=== PATIENT | female | born 1950 | race African-American/Black ===

== ENCOUNTER 2016-07-18 21:14 | Emergency (ER) | payer OTHER, BC ==
[~2016-07-18] VITALS: Ht 165.1 cm; Wt 92.5 kg
[~2016-07-18 21:14] MED LIST: FLEXERIL10 MG PO; UNABLE TO OBTAIN
[2016-07-19 00:05] VITALS: BP 144/96
== END 2016-07-19 00:10 | disposition home or self-care (01) ==
LOC: EXP 21:14 → EME 21:14 → EXP 07-19 00:10
DX: R15.9 Full incontinence of feces (principal)
CPT/HCPCS: 99281; 99284

== ENCOUNTER 2016-12-01 13:38 | Observation (INO) | payer OTHER, BC ==
[~2016-12-01] VITALS: Ht 165.1 cm; Wt 89.2 kg
[2016-12-01 14:03] LABS: HEMATOCRIT 40.8 % (36.0-46.0); MCH 29.3 PG (29.0-34.0); MCHC 32.6 G/DL (30.0-36.0); MCV 89.9 FL (83-99); MEAN PLAT.VOLUME 10.3 uM^3 (9.5-12.4); PLATELET COUNT 291 K/uL (156-360); RBC DIS.WIDTH-CV 13.6 % (11.8-14.6); RED BLOOD COUNT 4.54 M/uL (3.80-5.20); WHITE BLOOD COUNT 6.4 K/uL (4.1-10.2)
[2016-12-01 14:12] LABS: CHLORIDE 106 mEq/L (99-109); POTASSIUM 4.4 mEq/L (3.7-5.4); SODIUM 145 mEq/L (136-147)
[2016-12-01 14:14] LABS: GLUCOSE 114 mg/dL (70-99)
[2016-12-01 14:15] LABS: ANION GAP 10 MEQ/L (2-14)
[2016-12-01 14:17] LABS: GFR ESTIMATE (CALCULATED) > 59 mL/min/
[2016-12-01 14:18] LABS: UREA NITROGEN (BUN) 14 mg/dL (9-23)
[2016-12-01 14:23] LABS: TROP-I INTERPRETATION NEGATIVE; TROPONIN-I < 0.01 ng/mL (0.0-0.30)
[2016-12-01 17:28] VITALS: BP 178/77
[2016-12-01 19:00] VITALS: BP 132/70
[2016-12-01 20:27] LABS: TROP-I INTERPRETATION NEGATIVE; TROPONIN-I < 0.01 ng/mL (0.0-0.30)
[2016-12-01 20:37] LABS: POINT-OF-CARE METER ID UU14162513
[2016-12-01] MEDS ORDERED: METFORMIN HCL1000 MG PO (20:54)
[2016-12-01] MEDS ORDERED: TRIFLUOPERAZINE5 MG PO (20:54)
[2016-12-01] MEDS ORDERED: MELOXICAM7.5 MG PO (20:55)
[2016-12-01] MEDS ORDERED: AMLODIPINE-ATO1 EAC4 PO (20:56)
[2016-12-01] MEDS ORDERED: DIAZEPAM5 MG PO (20:57)
[2016-12-01] MEDS ORDERED: CYCLOBENZAPRINE10 MG PO (20:57)
[2016-12-01] MEDS ORDERED: MEMANTINE HCL5 MG PO (20:58)
[2016-12-01] MEDS ORDERED: ESCITALOPRAM OX10 MG PO (20:58)
[2016-12-01] MEDS ORDERED: PROTONIX40 MG PO (20:59)
[2016-12-01] MEDS ORDERED: TRAMADOL HCL50 MG PO (21:01)
[2016-12-01] MEDS ORDERED: LO-DOSE ASPIRIN81 M2 PO (21:01)
[2016-12-01 22:28] LABS: TROP-I INTERPRETATION NEGATIVE; TROPONIN-I 0.02 ng/mL (0.0-0.30)
[2016-12-02 00:26] VITALS: BP 109/63
[2016-12-02 04:27] VITALS: BP 158/73
[2016-12-02 07:21] LABS: TROP-I INTERPRETATION NEGATIVE; TROPONIN-I < 0.01 ng/mL (0.0-0.30)
[2016-12-02 07:26] VITALS: BP 136/72
[2016-12-02 08:16] LABS: POINT-OF-CARE METER ID UU14162513
[2016-12-02 10:34] VITALS: BP 125/83
[2016-12-02 12:26] LABS: POINT-OF-CARE METER ID UU14162513
[2016-12-02 15:21] LABS: TROP-I INTERPRETATION NEGATIVE; TROPONIN-I < 0.01 ng/mL (0.0-0.30)
[2016-12-02 15:50] VITALS: BP 136/73
[2016-12-02 17:34] LABS: POINT-OF-CARE METER ID UU13113831
[2016-12-02 19:05] VITALS: BP 147/79
[2016-12-02] MEDS ORDERED: AMLODIPINE BESY10 MG PO (20:26)
[2016-12-02] MEDS ORDERED: LOPRESSOR25 MG PO (20:26)
[2016-12-02] MEDS ORDERED: HYDROCODON-ACE1 EAC7 PO (20:26)
== END 2016-12-02 21:58 | disposition home or self-care (01) ==
LOC: EME 13:38 → EDOF 15:49 → 5WEST 15:49 → EDOF 15:49 → 5WEST 17:09
PROVIDERS: Internal Medicine
DX: R07.9 Chest pain, unspecified (principal); E11.9 Type 2 diabetes mellitus without complications; I10 Essential (primary) hypertension; E78.5 Hyperlipidemia, unspecified; Z87.891 Personal history of nicotine dependence; Z88.2 Allergy status to sulfonamides; Z91.041 Radiographic dye allergy status
CPT/HCPCS: 71020; 80048; 82948; 84484; 85027; 93005; 99281; 99285; G0378; J1644; J2405

== ENCOUNTER 2017-01-24 10:08 | Emergency (ER) | payer OTHER, BC ==
[~2017-01-24] VITALS: Ht 165.1 cm; Wt 90.0 kg
[~2017-01-24 10:08] MED LIST changes: +AMLODIPINE BESY10 MG PO; +AMLODIPINE-ATO1 EAC4 PO; +CYCLOBENZAPRINE10 MG PO; +DIAZEPAM5 MG PO; +ESCITALOPRAM OX10 MG PO; +HYDROCODON-ACE1 EAC7 PO; +LO-DOSE ASPIRIN81 M2 PO; +LOPRESSOR25 MG PO; +MELOXICAM7.5 MG PO; +MEMANTINE HCL5 MG PO; +METFORMIN HCL1000 MG PO; +PROTONIX40 MG PO; +TRAMADOL HCL50 MG PO; +TRIFLUOPERAZINE5 MG PO
[2017-01-24 11:23] LABS: ADD MIUA? YES; BILIRUBIN NEGATIVE; BLOOD LARGE; COLOR AMBER ((YELLOW)); GLUCOSE (STRIP) NEGATIVE; KETONES NEGATIVE; LEUKOCYTES LARGE; NITRITE NEGATIVE; PROTEIN (STRIP) 100; SPECIFIC GRAVITY 1.015 (1.000-1.030); UROBILINOGEN 0.2 MG/DL (0.2-1.0)
[2017-01-24 11:29] LABS: HEMATOCRIT 37.7 % (36.0-46.0); MCH 30.2 PG (29.0-34.0); MCHC 33.2 G/DL (30.0-36.0); MCV 91.1 FL (83-99); MEAN PLAT.VOLUME 10.3 uM^3 (9.5-12.4); PLATELET COUNT 232 K/uL (156-360); RBC DIS.WIDTH-CV 14.2 % (11.8-14.6); RBC DIS.WIDTH-SD 47.6 % (39-53); RED BLOOD COUNT 4.14 M/uL (3.80-5.20); WHITE BLOOD COUNT 8.9 K/uL (4.1-10.2)
[2017-01-24 11:40] LABS: CHLORIDE 105 mEq/L (99-109); POTASSIUM 3.9 mEq/L (3.7-5.4); SODIUM 142 mEq/L (136-147)
[2017-01-24 11:42] LABS: BACTERIA NONE SEEN /HPF; CALCIUM OXALATE CRYSTALS 4+ /HPF; EPITHELIAL CELLS RARE /HPF; MUCUS 1+ /LPF; RED BLOOD CELLS TNTC /HPF (0-5); UCUL ADDED? YES; WHITE BLOOD CELLS TNTC /HPF (0-5)
[2017-01-24 11:42] LABS: GLUCOSE 154 mg/dL (70-99)
[2017-01-24 11:43] LABS: ANION GAP 9 MEQ/L (2-14)
[2017-01-24 11:44] LABS: TOTAL BILIRUBIN 0.6 mg/dL (0.0-1.0)
[2017-01-24 11:45] LABS: ALKALINE PHOSPHATASE 114 IU/L (3-129)
[2017-01-24 11:46] LABS: GFR ESTIMATE (CALCULATED) 58 mL/min/
[2017-01-24 11:47] LABS: UREA NITROGEN (BUN) 15 mg/dL (9-23)
[2017-01-24] MEDS ORDERED: PYRIDIUM200 MG PO (12:04)
[2017-01-24] MEDS ORDERED: MOTRIN800 MG PO (12:04)
[2017-01-24] MEDS ORDERED: MACROBID100 MG PO (12:04)
[2017-01-24 12:18] VITALS: BP 130/89
== END 2017-01-24 12:19 | disposition home or self-care (01) ==
LOC: EME 10:08
PROVIDERS: Nurse Practitioner Family
DX: N39.0 Urinary tract infection, site not specified (principal); G43.909 Migraine, unspecified, not intractable, without status migrainosus; I10 Essential (primary) hypertension; E11.9 Type 2 diabetes mellitus without complications; Z79.84 Long term (current) use of oral hypoglycemic drugs; E78.5 Hyperlipidemia, unspecified; K21.9 Gastro-esophageal reflux disease without esophagitis; Z79.82 Long term (current) use of aspirin; Z88.2 Allergy status to sulfonamides; Z88.0 Allergy status to penicillin; Z91.041 Radiographic dye allergy status; Z87.891 Personal history of nicotine dependence
CPT/HCPCS: 80053; 81003; 85027; 87077; 87086; 87186; 99281; 99284

== ENCOUNTER 2017-08-14 17:33 | Emergency (ER) | payer OTHER, BC ==
[~2017-08-14] VITALS: Ht 165.1 cm; Wt 89.0 kg
[~2017-08-14 17:33] MED LIST changes: +COMPAZINE10 MG PO; +MACROBID100 MG PO; +MOTRIN800 MG PO; +NORCO 5/3251 TABLET PO; +PYRIDIUM200 MG PO; +ZOFRAN ODT4 MG PO
[2017-08-14 18:37] LABS: HEMATOCRIT 38.2 % (36.0-46.0); HEMOGLOBIN 12.9 G/DL (11.9-15.5); MCHC 33.8 G/DL (30.0-36.0); MCV 88.8 FL (83-99); PLATELET COUNT 296 K/uL (156-360); RBC DIS.WIDTH-CV 13.9 % (11.8-14.6); RBC DIS.WIDTH-SD 44.9 % (39-53); WHITE BLOOD COUNT 4.9 K/uL (4.1-10.2)
[2017-08-14 18:50] LABS: CHLORIDE 111 mEq/L (99-109); POTASSIUM 4.2 mEq/L (3.7-5.4); SODIUM 141 mEq/L (136-147)
[2017-08-14 18:52] LABS: GLUCOSE 96 mg/dL (70-99)
[2017-08-14 18:55] LABS: CREATININE 0.8 mg/dL (0.6-1.3); GFR ESTIMATE (CALCULATED) > 59 mL/min/
[2017-08-14 18:56] LABS: UREA NITROGEN (BUN) 17 mg/dL (9-23)
[2017-08-14 18:58] LABS: CREATINE KINASE 57 IU/L (1-294)
[2017-08-14] MEDS ORDERED: VALIUM5 MG PO (19:17)
[2017-08-14] MEDS ORDERED: OXYCODONE HCL10 MG PO (19:17)
[2017-08-14 22:18] VITALS: BP 159/88
== END 2017-08-14 22:31 | disposition home or self-care (01) ==
LOC: EME 17:33
PROVIDERS: Physician Assistant
DX: M54.16 Radiculopathy, lumbar region (principal); G89.29 Other chronic pain; E11.9 Type 2 diabetes mellitus without complications; I10 Essential (primary) hypertension; Z79.82 Long term (current) use of aspirin; Z79.84 Long term (current) use of oral hypoglycemic drugs; Z88.0 Allergy status to penicillin; Z88.2 Allergy status to sulfonamides; Z91.041 Radiographic dye allergy status
CPT/HCPCS: 80048; 82550; 85027; 99281; 99284; J1100; J1885; J2270; J7050

== ENCOUNTER 2017-08-23 17:06 | Emergency (ER) | payer OTHER, BC ==
[~2017-08-23] VITALS: Ht 165.1 cm; Wt 89.1 kg
[~2017-08-23 17:06] MED LIST changes: +OXYCODONE HCL10 MG PO; +VALIUM5 MG PO
[2017-08-23] MEDS ORDERED: LIDODERM 5% P1 PATCH TD (20:26)
[2017-08-23] MEDS ORDERED: OXYCODONE HCL10 MG PO (20:26)
[2017-08-23] MEDS ORDERED: PREDNISONE10 MG PO (20:26)
[2017-08-23] MEDS ORDERED: FLEXERIL10 MG PO (20:26)
[2017-08-23 20:46] VITALS: BP 104/67
== END 2017-08-23 21:02 | disposition home or self-care (01) ==
LOC: EME 17:06
DX: M46.1 Sacroiliitis, not elsewhere classified (principal); Z01.89 Encounter for other specified special examinations; G89.29 Other chronic pain; M54.42 Lumbago with sciatica, left side; E11.9 Type 2 diabetes mellitus without complications; F41.9 Anxiety disorder, unspecified; F20.9 Schizophrenia, unspecified; Z79.84 Long term (current) use of oral hypoglycemic drugs; Z79.82 Long term (current) use of aspirin; Z88.2 Allergy status to sulfonamides; Z88.0 Allergy status to penicillin; Z91.041 Radiographic dye allergy status
CPT/HCPCS: 72202; 99281; 99284; J1100; J2270